=== PATIENT | female | born 1980 | race Caucasian/White ===

== ENCOUNTER 2017-04-03 22:48 | Emergency (ER) | payer MEDICAID, MEDICARE ==
[~2017-04-03] VITALS: Ht 157.5 cm; Wt 58.0 kg
[~2017-04-03 22:48] MED LIST: ASPI81TA82 PO; CARV25TA PO; CLON1TAB PO; FURO1TAB93 PO; LOSA25 PO; LYRI50CA2 PO; SPIR25 PO
[2017-04-03 22:49] VITALS: BP 144/90; PULSE 91; RESP 16; TEMP 98.6; O2SAT 98
== END 2017-04-04 00:40 | disposition left against medical advice (07) ==
LOC: NED 22:48
DX: Z53.21 Procedure and treatment not carried out due to patient leaving prior to being seen by health care provider (principal)
CPT/HCPCS: 99281

== ENCOUNTER → 2017-05-29 | Outpatient (CLI) | payer MEDICARE, OTHER | LOC: HPND 08:30 | PROVIDERS: ATTEND Family Medicine | DX: Z36.3 Encounter for antenatal screening for malformations (principal) | CPT/HCPCS: 76805 ==

== ENCOUNTER → 2017-07-05 | Outpatient (CLI) | payer MEDICARE, OTHER ==
[~2017-07-05] MED LIST changes: -ASPI81TA82 PO; -CLON1TAB PO; -FURO1TAB93 PO; -LOSA25 PO; -LYRI50CA2 PO; +PERC10TA27 PO; -SPIR25 PO; +TRAM50TA PO
== END ==
LOC: HPND 09:26
PROVIDERS: ATTEND Obstetrics & Gynecology
DX: O09.522 Supervision of elderly multigravida, second trimester (principal); O99.412 Diseases of the circulatory system complicating pregnancy, second trimester; O35.2XX0 Maternal care for (suspected) hereditary disease in fetus, not applicable or unspecified; O43.192 Other malformation of placenta, second trimester; O36.8920 Maternal care for other specified fetal problems, second trimester, not applicable or unspecified
CPT/HCPCS: 76811; 76825; 76827; 93325

== ENCOUNTER → 2017-08-09 | Outpatient (CLI) | payer MEDICARE, OTHER | LOC: HPND 10:40 | PROVIDERS: ATTEND Obstetrics & Gynecology | DX: O99.412 Diseases of the circulatory system complicating pregnancy, second trimester (principal); O43.192 Other malformation of placenta, second trimester; O09.522 Supervision of elderly multigravida, second trimester; O35.2XX0 Maternal care for (suspected) hereditary disease in fetus, not applicable or unspecified | CPT/HCPCS: 76816 ==

== ENCOUNTER → 2017-08-23 | Outpatient (CLI) | payer MEDICARE, OTHER | LOC: HPND 12:03 | PROVIDERS: ATTEND Obstetrics & Gynecology | DX: O09.523 Supervision of elderly multigravida, third trimester (principal); O35.2XX0 Maternal care for (suspected) hereditary disease in fetus, not applicable or unspecified; O43.193 Other malformation of placenta, third trimester | CPT/HCPCS: 76815 ==

== ENCOUNTER 2017-10-18 16:22 | Emergency (ER) | payer MEDICARE, OTHER ==
--- NOTE | 2017-10-18 18:03 | PD ---
HPI Chief Complaint Not feeling well, Contractions Travel History International Travel<30 Days: No Contact w/Intl Traveler<30Days: No Known Affected Area: No History of Present Illness HPI 37-year-old , IUP at 37.1 care complicated by CHF, substance abuse on Subutex, cardiomyopathy, ADHD, PTSD, anxiety The patient presents from Dr. Park's office. She reports that she was not feeling well today, and had some nausea/vomiting. She reports that this is now resolved and she feels great. She reports that she has had a few intermittent contractions, including 2 in the office. She reports that she was 2-1/2 cm dilated in the office. There are no aggravating or alleviating factors, she reports the contractions are mild and she is not bothered by them. There is no attempted treatments. She denies any leaking of fluid or vaginal bleeding. She reports good movement. She denies any headache, visual changes, right upper quadrant or epigastric pain. She reports that she had heartburn yesterday but that has resolved. She denies any other complaints at this time. Weeks Gestation: 37 Para: 1 : 3 History Past Medical History Narrative Medical CHF Substance abuse Cardiomyopathy ADHD PTSD Anxiety Obstetric History Obstetric History 1 SAB 1 Past Surgical History Narrative [facility] teeth extraction T&A Heart catheterization Family History Narrative Family History Heart murmur, MA, brain tumor, stomach versus esophageal cancer Social History Alcohol Use: No Tobacco Use: Yes Substance Abuse: Yes (h/o substance/opioid (pill) use, now on subutex and denies current usage) Allergies-Medications (Allergen,Severity, Reaction): Coded Allergies: No Known Allergies (Unverified Adverse Reaction, Unknown, 06/08/17) Home Meds Reported Medications Oxycodone-Acetaminophen (Percocet) 10-325 mg Tab, 1 TAB PO Q4H Y for PAIN, TAB 0 Refills 06/28/17 Tramadol (Tramadol) 50 Mg Tab, 50 MG PO Q4H Y for PAIN, TAB 0 Refills 06/28/17 Carvedilol (Carvedilol) 25 Mg Tab, 25 MG PO BID, #60 TAB 0 Refills 06/28/17 Review of Systems Except as stated in HPI: all other systems reviewed are Neg Physical Exam Narrative GENERAL: Well-nourished, well-developed patient. SKIN: Warm and dry. HEAD: Normocephalic and atraumatic. EYES: No scleral icterus. No injection or drainage. ENT: No nasal drainage noted. Mucous membranes pink. Airway patent. NECK: Supple, trachea midline. No JVD. CARDIOVASCULAR: Regular rate and rhythm without murmurs, gallops, or rubs. RESPIRATORY: Breath sounds equal bilaterally. No accessory muscle use. BREASTS: Deferred ABDOMEN/GI: Abdomen soft, non-tender, bowel sounds present, no rebound, no guarding Gravid GENITOURINARY: External Genitalia: intact and normal in appearance. Normal EGBUS. No cervical or vaginal masses appreciated. Grossly normal rugated. Physiologic discharge. SBE 1-2/50/-3, posterior. Uterine Contractions: Irregular FHT's: heart tones in the 130s with moderate long-term variability, good accelerations, no decelerations noted. This is a category 1 heart rate tracing and a reactive NST. EXTREMITIES: No cyanosis or edema. BACK: Nontender without obvious deformity. NEUROLOGICAL: Awake and alert. Motor and sensory grossly within normal limits. Normal speech. Musculoskeletal: Grossly normal range of motion, gait, muscle strength Psychiatric: Grossly normal memory and affect MDM Plan Assessment/plan: 1. IUP at 37.1 2. Generalized symptom of not feeling well with nausea and vomiting: Symptoms have entirely resolved and the patient now feels "great." Nausea/vomiting precautions to return if the patient 3. Normal blood pressures with no signs or symptoms of preeclampsia, preclampsia precautions. 4. wellbeing: reassuring testing with reactive NST and category 1 FHR tracking. [facility] daily. 5. H/o substance abuse: continue subutex as per Dr. Park. 6. H/o CHF and cardiomegaly: asymptomatic at this time, continue to follow up with melting supervisor as per primary OB 7. ADHD 8. PTSD 9. Anxiety 10. No evidence of labor, strict labor precautions Dr. Park called to check on patient, was given dialogue about patient, agreed with discharge home. Diagnosis Diagnosis: Primary Impression: 37 weeks gestation of Additional Impression: False labor before 37 completed weeks of gestation during in third trimester, antepartum Disposition: DISCHARGE HOME Condition: Linda Bunch MD Oct 18, 2017 18:03
--- NOTE | 2017-10-18 18:08 | PD ---
History of Present Illness History of Present Illness NST report Indications: IUP at 37w, CHF, cardiomyopathy, h/o substance abuse, abdominal pain heart tones in the 130s with moderate predatory animal exterminator variability, good accelerations, no decelerations. This is a category 1 heart rate tracing and reactive NST. F/U as clinically indicated Final diagnosis: IUP at 37w, CHF, cardiomyopathy, h/o substance abuse, abdominal pain Linda Garcia MD Oct 18, 2017 18:08
== END 2017-10-18 18:38 | disposition home or self-care (01) ==
LOC: HOBED 16:22
DX: O47.1 False labor at or after 37 completed weeks of gestation (principal); R11.2 Nausea with vomiting, unspecified; Z3A.37 37 weeks gestation of pregnancy; Z72.0 Tobacco use
CPT/HCPCS: 99284

== ENCOUNTER 2017-10-22 03:26 | Inpatient (IN) | payer MEDICARE, MEDICAID ==
[~2017-10-22] VITALS: Ht 157.5 cm; Wt 68.0 kg
[2017-10-22] VITALS (60 sets, daily range): BP systolic 96–142; BP diastolic 57–94; PULSE 69–88; RESP 16–18; TEMP 98–99.1; O2SAT 97–100
[2017-10-22] MEDS ORDERED: LACTATED RINGER'S 1000 ML INJ 1,000 ML IV SCH (04:14)
[2017-10-22] MEDS ORDERED: LACTATED RINGER'S 1000 ML INJ 1,000 ML IV PRN (04:14)
--- NOTE | 2017-10-22 04:14 | PD ---
HPI Chief Complaint Rupture membranes Date Seen: Oct 22, 2017 Time Seen: 04:08 Travel History International Travel<30 Days: No Contact w/Intl Traveler<30Days: No Known Affected Area: No History of Present Illness HPI 37-year-old who is at 37 weeks and 5 days comes in complaining of rupture membranes at approximately 2:00 this morning. Patient denies significant contractions at this time and just had her group B strep done approximately 5 days ago so she does not know the result. She has a history of congestive heart failure with cardiomyopathy that is followed by perinatology but she was cleared to deliver here. She was on tramadol at some point and was switched over to Subutex by her physician during her . Weeks Gestation: 37 Para: 1 : 3 History Past Medical History Narrative Medical Cardiomyopathy with congestive heart failure maintained on Coreg, occasional doses of furosemide Transesophageal echo was performed this Obstetric History Obstetric History Spontaneous vaginal delivery Past Surgical History Narrative [facility] [place] tooth removal and cardiac cath Family History Family History: Negative Social History Alcohol Use: No Tobacco Use: No Substance Abuse: No Allergies-Medications (Allergen,Severity, Reaction): Coded Allergies: No Known Allergies (Unverified Adverse Reaction, Unknown, 06/08/17) Home Meds Reported Medications Oxycodone-Acetaminophen (Percocet) 10-325 mg Tab, 1 TAB PO Q4H Y for PAIN, TAB 0 Refills 06/28/17 Tramadol (Tramadol) 50 Mg Tab, 50 MG PO Q4H Y for PAIN, TAB 0 Refills 18 Carvedilol (Carvedilol) 25 Mg Tab, 25 MG PO BID, #60 TAB 0 Refills 06/28/17 Review of Systems Except as stated in HPI: all other systems reviewed are Neg Physical Exam Narrative GENERAL: Well-nourished, well-developed patient. SKIN: Warm and dry. HEAD: Normocephalic and atraumatic. EYES: No scleral icterus. No injection or drainage. ENT: No nasal drainage noted. Mucous membranes pink. Airway patent. NECK: Supple, trachea midline. No JVD. CARDIOVASCULAR: Regular rate and rhythm without murmurs, gallops, or rubs. RESPIRATORY: Breath sounds equal bilaterally. No accessory muscle use. ABDOMEN/GI: Abdomen soft, non-tender, bowel sounds present, no rebound, no guarding Gravid to [-36] weeks size Fundal Height: [-] GENITOURINARY: External Genitalia: intact and normal in appearance BUS glands: [-] Normal Cervix: [-] 2-3 Dilatation: [-] 50 Effacement: [-] -3 Station: [-] Vertex Presentation: [-] Membranes: [intact or ruptured] ruptured with clear fluid Uterine Contractions: [-] Absent FHT's: Category: [-] 1 Baseline: [-] 140 Reactive: [-] Moderate Variability: [-] Moderate Decels: [-] Absent EXTREMITIES: No cyanosis or edema. BACK: Nontender without obvious deformity. No CVA tenderness. NEUROLOGICAL: Awake and alert. Motor and sensory grossly within normal limits. Five out of 5 muscle strength in all muscle groups. Normal speech. Data Data Vital Signs Reviewed: Yes [facility] Medical Record Reviewed: Yes Plan 37-year-old patient who is at 37 weeks 5 days Premature rupture membranes, not labor at this time, clear amniotic fluid Unknown group B strep CHF with cardiomyopathy, stable during this maintain on Coreg and occasional Lasix Admit to Dr. Richards Diagnosis Diagnosis: Primary Impression: 37 weeks gestation of Additional Impressions: Premature rupture of membranes Advanced maternal age in multigravida Maternal cardiomyopathy affecting in third trimester, antepartum Maxine Johnson MD Oct 22, 2017 04:14
[2017-10-22] MEDS ORDERED: SODIUM CHLORID 0.9% 500 ML INJ 500 ML IV PRN (04:15)
[2017-10-22] MEDS ORDERED: MINERAL OIL 10 ML VIAL TOPICAL PRN (04:15)
[2017-10-22] MEDS ORDERED: CITRIC ACID-SODIUM CITRATE LIQ 30 ML UDC PO SCH (04:15)
[2017-10-22] MEDS ORDERED: LIDOCAINE HCL 1% 50 ML VIAL INFIL PRN (04:15)
[2017-10-22] MEDS ORDERED: LIDOCAINE HCL 1% 50 ML VIAL I-DERMAL PRN (04:15)
[2017-10-22] MEDS ORDERED: OXYTOCIN 30 UNITS-500ML PREMIX 500 ML IV ONE (04:15)
[2017-10-22] MEDS ORDERED: SODIUM CHLOR 0.9% 1000 ML INJ 1,000 ML IV PRN (04:34)
[2017-10-22 05:04] LABS: AUTOMATED NEUTROPHIL # 6.4 TH/MM3 (1.8-7.7); BASOPHIL % 0.4 % (0.0-2.0); EOSINOPHIL # 0.2 TH/MM3 (0-0.4); EOSINOPHIL % 1.8 % (0.0-4.0); HEMATOCRIT 32.1 % (35.0-46.0); HEMOGLOBIN 11.4 GM/DL (11.6-15.3); LYMPH % 23.6 % (9.0-44.0); LYMPHOCYTE # 2.3 TH/MM3 (1.0-4.8); MEAN CORPUSCULAR HEMOGLOBIN 32.3 PG (27.0-34.0); MEAN CORPUSCULAR HGB CONC 35.5 % (32.0-36.0); MONO % 7.6 % (0.0-8.0); MONOCYTE # 0.7 TH/MM3 (0-0.9); NEUT % 66.6 % (16.0-70.0); PLATELET COUNT 158 TH/MM3 (150-450); RED BLOOD COUNT 3.53 MIL/MM3 (4.00-5.30); RED CELL DISTRIBUTION WIDTH 12.7 % (11.6-17.2); WHITE BLOOD COUNT 9.6 TH/MM3 (4.0-11.0)
[2017-10-22 05:05] LABS: BILIRUBIN, URINE NEG (NEG); BLOOD, URINE NEG (NEG); GLUCOSE,URINE NEG (NEG); KETONE, URINE NEG (NEG); NITRITE,URINE NEG (NEG); SQUAMOUS EPITHELIAL CELL URINE 1 /hpf (0-5); URINE COLOR LIGHT-YELLOW (YELLW/STRAW); URINE LEUKOCYTE ESTERASE NEG (NEG)
[2017-10-22 05:34] LABS: BICARBONATE 21.8 MEQ/L (21.0-32.0); CALCIUM 8.4 MG/DL (8.5-10.1); CREATININE 0.5 MG/DL (0.50-1.00)
[2017-10-22] MEDS ORDERED: SODIUM CHLORIDE FLUSH PRN IV FLUSH (05:45)
[2017-10-22] MEDS ORDERED: FURO1TAB60 PO (06:33)
[2017-10-22] MEDS ORDERED: BUPR8SUB SL (06:33)
[2017-10-22] MEDS ORDERED: OXYTOCIN 30 UNITS-500ML PREMIX 500 ML IV PRN (07:45)
--- NOTE | 2017-10-22 07:46 | PD.LABORPN ---
Subjective Subjective pt feeling well, mild irregular contractions, good movement, no shortness of breath or chest pain, no edema Objective Vital Signs Vital Signs Date Time Temp Pulse Resp B/P (MAP) Pulse Ox O2 Delivery O2 Flow Rate FiO2 10/22/17 05:03 18 10/22/17 05:03 74 130/72 (91) Objective Pelvic Exam: Cervix: [mid] Dilatation: [2] Effacement: [50] Station: [-3] Presentation: [vtx] Membranes: [ruptured clear] Uterine Contractions: [rare irregular] FHT's: Category: [I] Baseline: [130s] Reactive: [y] Variability: [y] Decels: [n] Weeks Gestation: 37 Pt started active labor?: No Medical induction of labor?: No Artificial rupture of membrane: No Assessment/Plan Problem List: (1) Premature rupture of membranes ICD Codes: O42.90 - Premature rupture of membranes, unspecified as to length of time between rupture and onset of labor,unspecified weeks of gestation Status: Acute (2) 37 weeks gestation of ICD Codes: Z3A.37 - 37 weeks gestation of Status: Acute (3) Advanced maternal age in multigravida ICD Codes: O09.529 - Supervision of elderly multigravida, unspecified trimester Status: Chronic (4) Maternal cardiomyopathy affecting in third trimester, antepartum ICD Codes: O99.413 - Diseases of the circulatory system complicating , third trimester; I42.9 - Cardiomyopathy, unspecified Status: Chronic (5) Chronic prescription opiate use ICD Codes: Z79.891 - jail (current) use of opiate analgesic Status: Chronic Assessment and Plan 37 yo with minaya female IUP at 37w5d admitted for leakage of fluid, confirmed rupture of membranes, not yet in labor 1) PROM - admit and augment, pitocin ordered 2) GBS neg 3) h/o cardiomyopathy outside of : per pt diagnosed in 2013, saw specialists at [facility] (Dr. Johnson, see note on chart) and now seeing local manager statistics Dr. Sanchez; will consult Dr. Sanchez & notify pt in labor, await any specific recommendations for management intra- and ; continue Coreg 25mg BID, pt not taking other meds while ; will watch IVF carefully to avoid overload; last EF reported 56% on note from Dr. Johnson dated 06/2017 4) chronic back pain: was taking tramadol, transitioned to Suboxone, Dr. Park managing, pt takes 8mg 1/2 tablet twice daily, doing well 5) status: vertex, EFW on most recent growth scan approx 20%tile, female, Cat I tracing currently; marginal cord insertion 6) dispo: not meeting criteria Juliana Richards MD Oct 22, 2017 07:46
[2017-10-22] MEDS: ACETAMINOPHEN 325 MG TAB PO PRN ×3 (08:24→20:53)
[2017-10-22] MEDS ORDERED: SODIUM CHLORIDE FLUSH BID IV FLUSH SCH (09:00)
--- NOTE | 2017-10-22 09:13 | PD.LABORPN ---
Subjective Subjective Sitting up comfortable in bed with no contractions water still coming out. does not want to take subutex at this time; feels she does not need it and worried that pain meds won't work denies SOB, chest pain, palpitations notes GFM Objective Vital Signs Vital Signs Date Time Temp Pulse Resp B/P (MAP) Pulse Ox O2 Delivery O2 Flow Rate FiO2 10/22/17 07:38 16 10/22/17 07:38 98.0 10/22/17 05:03 18 10/22/17 05:03 74 130/72 (91) Objective strip category one cervix 2/ thick per Dr. Richards pelvis proven EFW 7 pounds no edema of significance Weeks Gestation: 37 Gest Age Assessed Date: Oct 22, 2017 Gest Age Assessed Time: 09:06 Pt started active labor?: No Medical induction of labor?: No Artificial rupture of membrane: No Assessment/Plan Problem List: (1) Premature rupture of membranes ICD Codes: O42.90 - Premature rupture of membranes, unspecified as to length of time between rupture and onset of labor,unspecified weeks of gestation Status: Acute Plan: she is late with GBS- and can be augmented to deliver due to PPROM (2) 37 weeks gestation of ICD Codes: Z3A.37 - 37 weeks gestation of Status: Acute (3) Advanced maternal age in multigravida ICD Codes: O09.529 - Supervision of elderly multigravida, unspecified trimester Status: Chronic (4) 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 Sanchez. It is anticipated that delivery and post will be uneventful due to excellent ejection fraction and lack of symptoms Will limit fluid and watch post (5) Chronic prescription opiate use ICD Codes: Z79.891 - adjunct faculty for medical terminology (current) use of opiate analgesic Status: Chronic Assessment and Plan Began subutex due to opioid dependence Wants to eventually wean. Did not take gabapentin even tho it helped with arthritis and neuropathy in hands Brigitte Park MD Oct 22, 2017 09:13
[2017-10-22] MEDS: LACTATED RINGER'S 1000 ML INJ 1,000 ML IV SCH ×3 (09:26→20:47)
[2017-10-22] MEDS: NICOTINE 14 MG/24 HR PATCH T-DERMAL SCH (10:51)
[2017-10-22] MEDS: CARVEDILOL 12.5 MG TAB PO SCH (17:37)
--- NOTE | 2017-10-22 17:54 | MB ---
cc: Hardeep Concepcion DATE: 10/22/2017 PRIMARY BRAKE ENGINEER: Laron Sanchez MD IMPRESSIONS: 1. Dilated cardiomyopathy, [place] [employer] Functional Class 1, etiology unknown/idiopathic/post-viral. The patient tells me her last ejection fraction was 56%. 2. Intrauterine 37 weeks. 3. Hypertension. 4. Ongoing tobacco usage. RECOMMENDATIONS: The patient is essentially asymptomatic as regard to her cardiovascular system. She has no history of cardiac arrhythmias, dizzy spells, syncopal episodes, etc. She has not had any congestive heart failure, though she tells me at one time, her ejection fraction was in the 10-15% range. She appears to be an adequate risk for induction of labor. HISTORY OF PRESENT ILLNESS: The patient is a 37-year-old female whose water broke apparently yesterday. She has been admitted to the hospital. She is 37 weeks and delivery is being induced. She is currently on oxytocin drip. She has a history of a dilated cardiomyopathy, which developed symptomatically about 6 years after her first child was born. There apparently is no consideration of a dilated cardiomyopathy at this point in time. She has a history of hypertension. She has no history of diabetes or dyslipidemia. She has no history of cardiac arrhythmias. No history of coronary artery disease. She has had a cardiac catheterization, she tells me. She has had no history of seizures, strokes, TIAs. She does smoke 1/2-1 pack of cigarettes per day. She has been on a nicotine patch, trying to quit. She has no history of emphysema. No history of GI bleeding or acid peptic disease. No history of liver, gallbladder, kidney or thyroid disease. MEDICATIONS: At the time of admission to the hospital included carvedilol 25 b.i.d. She had previously been on spironolactone and lisinopril; however, stopped these when she realized that she was . She is on a nicotine patch. She also uses intermittent doses of furosemide. She does take oxycodone and tramadol on occasion for chronic low back pain. She tells me she has a herniated disks at 3 levels in her lumbar spine. ALLERGIES: SHE HAS NO ALLERGIES TO MEDICATIONS. PAST SURGICAL HISTORY: Includes cardiac catheterization, previous spontaneous vaginal delivery. She has also had a transesophageal echo and oral surgery. REVIEW OF SYSTEMS: She has had no recent chest pain. She has had intermittent lower extremity edema. She has had some mild exertional dyspnea. No PND or orthopnea. She has had no palpitations or dizzy spells. PHYSICAL EXAMINATION: GENERAL: At this time demonstrates an alert, oriented female, no apparent distress, breathing room air. She is not dyspneic, nor tachypneic. She is walking around the room, just returned from the water closet. VITAL SIGNS: Blood pressure 110/66, heart rate 70. HEENT: Anicteric sclerae. NECK: Jugular venous pressures are normal. LUNGS: She has clear lungs thomas. CARDIAC: Regular rate and rhythm without clicks, rubs or gallops noted. A I/ systolic ejection murmur. ABDOMEN: Deferred. EXTREMITIES: Free of cyanosis, clubbing, edema with normal pulses. LABORATORY EVALUATION: White cell count 9600, hematocrit 32, platelet count 158. Electrolytes 142, 3.6, 110, 22 with a BUN of 6, creatinine 0.5, calcium 8.4. DISCUSSION: A 37-year-old woman, full-term intrauterine with labor currently being induced. She has a history of a cardiomyopathy, most recent ejection fraction apparently normal. Recommendations are as noted above. I would recommend the patient resuming all of her medications. The patient tells me that she will breastfeed and needs to consult her direct chill casting operator/telephone advice nurse about the timing of restarting her carvedilol, lisinopril and spironolactone. DO RITESH Cardona/AMOS , 04:37 PM , 05:53 PM
[2017-10-22] MEDS ORDERED: fentaNYL 2MCG-BUPIV 0.125% INJ 100 ML ONE (19:22)
[2017-10-22] MEDS ORDERED: ePHEDrine/NS 25 MG/5 ML SYRINGE ONE (19:22)
[2017-10-22] MEDS ORDERED: NO SYSTEM NARCOTICS PRN (20:00)
[2017-10-22] MEDS ORDERED: DO NOT ADMINISTER ANTICOAGULANTS PRN (20:00)
[2017-10-22] MEDS ORDERED: ePHEDrine/NS 25 MG/5 ML SYRINGE IV PUSH PRN (20:00)
[2017-10-22] MEDS: fentaNYL 2MCG-BUPIV 0.125% 100 ML EPIDURAL PRN (20:46)
[2017-10-23] VITALS (44 sets, daily range): BP systolic 105–131; BP diastolic 64–85; PULSE 70–175; RESP 18–20; TEMP 98–98.4; O2SAT 97–100
[2017-10-23] MEDS: fentaNYL 2MCG-BUPIV 0.125% 100 ML EPIDURAL PRN (02:15)
[2017-10-23] MEDS ORDERED: DOCUSATE SODIUM 50 MG/SENNA 8.6 MG TAB PO PRN (03:15)
[2017-10-23] MEDS ORDERED: ONDANSETRON ODT 4 MG TAB PO PRN (03:15)
[2017-10-23] MEDS ORDERED: SODIUM CHLORIDE 0.9% FLUSH 10 ML FLUSH IV FLUSH PRN (03:15)
[2017-10-23] MEDS ORDERED: IBUPROFEN 800 MG TAB PO PRN (03:15)
[2017-10-23] MEDS ORDERED: ALUMINUM/MAGNESIUM/SIMETH 30 ML CUP PO PRN (03:15)
[2017-10-23] MEDS ORDERED: OXYTOCIN 30 UNITS-500ML PREMIX 500 ML IV SCH (03:15)
[2017-10-23] MEDS ORDERED: BENZOCAINE 20% TOPICAL SPRAY 60 ML CAN TOPICAL PRN (03:15)
[2017-10-23] MEDS ORDERED: ZOLPIDEM TARTRATE 5 MG TAB PO PRN (03:15)
[2017-10-23] MEDS ORDERED: WITCH HAZEL 50%/GLYCERIN 12.5% 40 PAD JAR TOPICAL PRN (03:15)
--- NOTE | 2017-10-23 03:16 | PD.OB.DELI ---
Weeks gestation: 37 Gest age assessed date: Oct 22, 2017 Gest age assessed time: 09:06 Pt started active labor?: No Medical induction of labor?: No Artificial rupture of membrane: No Anesthesia: Epidural Episiotomy: None Vaginal Delivery: Normal Presentation: Occiput anterior Nuchal Cord: x1 (clamped & cut at perineum) : Female Delivery date: Oct 23, 2017 Delivery time: 02:52 One Minute : 9 Five Minute : 9 Weight: 5#6oz Placenta: Spontaneous delivery, Intact, 3 vessel cord, Other (marginal cord insertion) Laceration: No lacerations Estimated blood loss: 200 mL Additional Information uncomplicated spontaneous vaginal delivery over intact perineum, healthy female "Ramila" Juliana Richards MD Oct 23, 2017 03:16
[2017-10-23] MEDS: CARVEDILOL 12.5 MG TAB PO SCH ×2 (06:14→19:09)
[2017-10-23] MEDS ORDERED: ACETAMINOPHEN 1000 MG/100 ML 100 ML IV ONE (07:45)
[2017-10-23] MEDS: FUROSEMIDE 20 MG TAB PO SCH (08:27)
[2017-10-23] MEDS: NICOTINE 14 MG/24 HR PATCH T-DERMAL SCH (08:28)
--- NOTE | 2017-10-23 08:49 | HHI.OB ---
Subjective Post Day: 0 Remarks distraught over visit by Dr. Umaña: Told baby could need extended stay here or at [facility] Objective Vitals/I&O Vital Signs Date Time Temp Pulse Resp B/P (MAP) Pulse Ox O2 Delivery O2 Flow Rate FiO2 10/23/17 08:00 88 20 118/76 (90) 98 10/23/17 08:00 98.0 10/23/17 06:00 98.3 74 18 10/23/17 04:31 105/80 (88) 10/23/17 04:30 18 10/23/17 04:15 79 116/67 (83) 10/23/17 04:01 72 123/76 (92) 10/23/17 04:00 18 10/23/17 03:45 18 10/23/17 03:31 74 131/75 (93) 10/23/17 03:15 93 18 124/85 (98) 10/23/17 03:00 175 122/80 (94) 10/23/17 02:47 86 115/74 (88) 10/23/17 02:30 75 111/75 (87) 99 10/23/17 02:25 73 100 10/23/17 02:15 18 10/23/17 02:15 100 10/23/17 02:15 73 118/71 (87) 10/23/17 02:10 78 100 10/23/17 02:05 75 100 10/23/17 02:00 121/66 (84) 98 10/23/17 02:00 74 10/23/17 01:55 74 98 10/23/17 01:52 18 10/23/17 01:51 98.1 10/23/17 01:50 70 98 10/23/17 01:45 73 10/23/17 01:45 114/64 (81) 99 10/23/17 01:40 77 99 10/23/17 01:35 75 97 10/23/17 01:30 74 10/23/17 01:30 108/66 (80) 97 10/23/17 01:25 76 98 10/23/17 01:20 75 98 10/23/17 01:15 77 10/23/17 01:15 78 111/65 (80) 98 10/23/17 01:12 18 10/23/17 01:10 76 99 10/23/17 01:05 77 98 10/23/17 01:00 77 10/23/17 01:00 117/69 (85) 99 10/23/17 00:55 87 98 10/23/17 00:50 83 98 10/23/17 00:45 85 10/23/17 00:45 82 127/68 (87) 98 10/23/17 00:40 74 99 10/23/17 00:35 75 99 10/23/17 00:30 111/67 (82) 99 10/23/17 00:30 75 10/23/17 00:25 71 99 10/23/17 00:20 77 99 10/23/17 00:15 70 10/23/17 00:15 112/65 (81) 99 10/23/17 00:00 75 117/71 (86) 10/22/17 23:55 69 99 10/22/17 23:50 74 97 10/22/17 23:49 98.0 18 10/22/17 23:45 79 98 10/22/17 23:40 73 98 10/22/17 23:35 73 98 10/22/17 23:30 75 10/22/17 23:30 73 113/63 (80) 97 10/22/17 23:25 98 10/22/17 23:25 72 10/22/17 23:20 98 10/22/17 23:20 71 10/22/17 23:16 72 111/65 (80) 10/22/17 23:15 99 10/22/17 23:15 71 18 10/22/17 23:10 72 10/22/17 23:10 100 10/22/17 23:05 98 10/22/17 23:05 73 10/22/17 23:00 98 10/22/17 23:00 77 10/22/17 23:00 73 133/73 (93) 10/22/17 22:55 99 10/22/17 22:55 77 10/22/17 22:50 98 10/22/17 22:50 75 10/22/17 22:45 74 18 122/77 (92) 10/22/17 22:45 77 10/22/17 22:45 98 10/22/17 22:40 72 10/22/17 22:40 99 10/22/17 22:35 70 10/22/17 22:35 99 10/22/17 22:30 70 10/22/17 22:30 99 10/22/17 22:25 77 10/22/17 22:25 99 10/22/17 22:20 98 10/22/17 22:20 70 10/22/17 22:15 18 10/22/17 22:15 98 10/22/17 22:15 70 96/61 (73) 10/22/17 21:45 18 10/22/17 21:15 70 115/61 (79) 10/22/17 21:01 75 102/60 (74) 10/22/17 21:00 75 10/22/17 20:49 98.0 18 10/22/17 20:46 18 10/22/17 20:45 78 98/57 (71) 10/22/17 20:45 74 10/22/17 20:30 75 10/22/17 20:30 78 18 103/59 (74) 10/22/17 20:25 78 10/22/17 20:20 75 10/22/17 20:15 73 116/71 (86) 10/22/17 20:10 74 10/22/17 20:05 73 10/22/17 20:00 74 106/64 (78) 10/22/17 19:55 73 110/68 (82) 10/22/17 19:50 77 10/22/17 19:50 78 106/63 (77) 10/22/17 19:45 76 10/22/17 19:45 75 118/73 (88) 10/22/17 19:40 88 10/22/17 19:35 136/80 (98) 10/22/17 19:35 73 10/22/17 19:31 80 133/76 (95) 10/22/17 19:30 79 10/22/17 19:29 78 138/87 (104) 10/22/17 17:15 98.2 16 10/22/17 16:19 76 124/70 (88) 10/22/17 15:17 74 142/87 (105) 10/22/17 14:45 98.9 16 10/22/17 13:48 73 133/76 (95) 10/22/17 12:15 78 108/62 (77) 10/22/17 12:00 99.1 16 10/22/17 12:00 74 110/66 (81) 10/22/17 11:00 126/94 (105) 10/22/17 10:30 75 103/71 (82) 10/22/17 10:19 82 116/66 (83) 10/22/17 10:15 18 10/22/17 10:00 83 112/78 (89) 10/22/17 09:30 16 10/22/17 09:30 85 112/73 (86) 10/22/17 09:23 85 111/63 (79) Objective Remarks GENERAL: Well-nourished, well-developed patient. CARDIOVASCULAR: Regular rate and rhythm without murmurs, gallops, or rubs. RESPIRATORY: Breath sounds equal bilaterally. No accessory muscle use. ABDOMEN/GI: Abdomen soft, non-tender. Fundus: Firm, non-tender at umbilicus. GENITOURINARY: Light to moderate bleeding. EXTREMITIES: No cyanosis or edema, non-tender, without signs of DVT. Medications and IVs Current Medications Medications (Trade) Dose Ordered Sig/Va Route Start Time Stop Time Status Last Admin (Coreg) 25 mg Q12H PO 10/22/17 18:00 10/23/17 06:14 (Habitrol 14 Mg Patch.24 Hr) 1 patch DAILY T-DERMAL 10/22/17 09:45 10/23/17 08:28 Miscellaneous Information 1 DAILY T-DERMAL 10/23/17 09:00 ([facility] Information) No systemic narcotics to be given except... UNSCH PRN .XX 10/22/17 20:00 10/23/17 19:59 ([facility] Information) DO NOT ADMINISTER ANY ANTICOAGUL... UNSCH PRN .XX 10/22/17 20:00 10/23/17 19:59 (NS Flush) 2 ml BID IV FLUSH 10/23/17 09:00 (NS Flush) 2 ml UNSCH PRN IV FLUSH 10/23/17 03:15 (Tylenol) 650 mg Q4H PRN PO 10/23/17 03:15 (Motrin) 800 mg Q8H PRN PO 10/23/17 03:15 (Americaine 20% Top Spr) 1 spray Q4H PRN TOPICAL 10/23/17 03:15 10/23/17 06:11 (Tucks Pads) 1 applic QID PRN TOPICAL 10/23/17 03:15 10/23/17 06:11 (Connie-Colace) 2 tab Q12H PRN PO 10/23/17 03:15 (Ambien) 5 mg HS PRN PO 10/23/17 03:15 (M-M-R Ii Inj) 0.5 ml ONCE ONCE SQ 10/23/17 16:00 10/23/17 16:01 (Boostrix Inj) 0.5 ml ONCE ONCE IM 10/23/17 16:00 10/23/17 16:01 (Mag-Al Plus Susp Liq) 15 ml Q8H PRN PO 10/23/17 03:15 (Zofran Odt) 4 mg Q6H PRN PO 10/23/17 03:15 (Lasix) 20 mg DAILY PO 10/23/17 09:00 10/23/17 08:27 (Buprenorphine) 4 mg BID SL 10/23/17 09:00 Assessment/Plan Problem List: (1) Premature rupture of membranes ICD Codes: O42.90 - Premature rupture of membranes, unspecified as to length of time between rupture and onset of labor,unspecified weeks of gestation Status: Acute Plan: she is late with GBS- and can be augmented to deliver due to PPROM (2) 37 weeks gestation of ICD Codes: Z3A.37 - 37 weeks gestation of Status: Acute (3) Advanced maternal age in multigravida ICD Codes: O09.529 - Supervision of elderly multigravida, unspecified trimester Status: Chronic (4) 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 Sanchez. It is anticipated that delivery and post will be uneventful due to excellent ejection fraction and lack of symptoms Will limit fluid and watch post (5) Chronic prescription opiate use ICD Codes: Z79.891 - senior center manager (current) use of opiate analgesic Status: Chronic Assessment and Plan reviewed MESERET in general and in her case. Low dose subutex can have no MESERET or severe. Other substances including nicotine factor in. Genetics factor in. Discussed possibility vs probability and reassured her. Baby well at this time and not scoring. Plan to keep 5 days per protocol and she can stay with Ramila in PEDS for the last three of the five days discharge on Monday Brigitte Park MD Oct 23, 2017 08:49
[2017-10-23] MEDS: BUPRENORPHINE HCL 8 MG SUBLINGUAL TAB SL SCH ×2 (08:55→21:28)
[2017-10-23] MEDS ORDERED: CARISOPRODOL 350 MG TAB PO PRN (09:00)
[2017-10-23] MEDS ORDERED: SODIUM CHLORIDE 0.9% FLUSH 10 ML FLUSH IV FLUSH SCH (09:00)
[2017-10-23] MEDS ORDERED: REMOVE OLD PATCH T-DERMAL SCH (09:00)
[2017-10-23] MEDS ORDERED: BUPRENORPHINE/NALOXONE 8 MG/2 MG SUBLINGUAL TAB SL SCH (09:00)
[2017-10-23] MEDS: ACETAMINOPHEN 325 MG TAB PO PRN ×2 (15:56→21:31)
[2017-10-23] MEDS ORDERED: MEASLES, MUMPS, RUBELLA VACCINE 0.5 ML VIAL SQ ONE (16:00)
[2017-10-23] MEDS ORDERED: DIPHTH/TETANUS/ACEL PERTUSSIS (BOOSTER) 0.5 ML VIAL/PFS IM ONE (16:00)
[2017-10-24] MEDS: CARVEDILOL 12.5 MG TAB PO SCH ×2 (07:29→17:00)
[2017-10-24] MEDS: BUPRENORPHINE HCL 8 MG SUBLINGUAL TAB SL SCH ×2 (08:03→21:30)
[2017-10-24] MEDS: ACETAMINOPHEN 325 MG TAB PO PRN ×3 (08:03→21:33)
[2017-10-24] MEDS: FUROSEMIDE 20 MG TAB PO SCH (08:03)
[2017-10-24] MEDS: NICOTINE 14 MG/24 HR PATCH T-DERMAL SCH (08:04)
[2017-10-24 08:10] VITALS: BP 127/91; PULSE 76; RESP 18; TEMP 98.6
--- NOTE | 2017-10-24 08:56 | HHI.OB ---
Subjective Post Day: 1 Remarks c/o pain w pumping. Still tearful when talking of extended stay for baby. Objective Vitals/I&O Vital Signs Date Time Temp Pulse Resp B/P (MAP) Pulse Ox O2 Delivery O2 Flow Rate FiO2 10/23/17 20:01 98.4 74 18 118/81 (93) Objective Remarks GENERAL: Well-nourished, well-developed patient. CARDIOVASCULAR: Regular rate and rhythm without murmurs, gallops, or rubs. RESPIRATORY: Breath sounds equal bilaterally.G2 systolic murmur ABDOMEN/GI: Abdomen soft, non-tender. Fundus: Firm, non-tender at umbilicus. GENITOURINARY: Light to moderate bleeding. EXTREMITIES: No cyanosis or edema, non-tender, without signs of DVT. Medications and IVs Current Medications Medications (Trade) Dose Ordered Sig/Va Route Start Time Stop Time Status Last Admin (Coreg) 25 mg Q12H PO 10/22/17 18:00 10/24/17 07:29 (Habitrol 14 Mg Patch.24 Hr) 1 patch DAILY T-DERMAL 10/22/17 09:45 10/24/17 08:04 Miscellaneous Information 1 DAILY T-DERMAL 10/23/17 09:00 (NS Flush) 2 ml BID IV FLUSH 10/23/17 09:00 10/23/17 08:27 (NS Flush) 2 ml UNSCH PRN IV FLUSH 10/23/17 03:15 (Tylenol) 650 mg Q4H PRN PO 10/23/17 03:15 10/24/17 08:03 (Americaine 20% Top Spr) 1 spray Q4H PRN TOPICAL 10/23/17 03:15 10/23/17 06:11 (Tucks Pads) 1 applic QID PRN TOPICAL 10/23/17 03:15 10/23/17 06:11 (Connie-Colace) 2 tab Q12H PRN PO 10/23/17 03:15 10/23/17 21:29 (Ambien) 5 mg HS PRN PO 10/23/17 03:15 (Mag-Al Plus Susp Liq) 15 ml Q8H PRN PO 10/23/17 03:15 (Zofran Odt) 4 mg Q6H PRN PO 10/23/17 03:15 (Lasix) 20 mg DAILY PO 10/23/17 09:00 10/24/17 08:03 (Buprenorphine) 4 mg BID SL 10/23/17 09:00 10/24/17 08:03 (Soma) 350 mg ONCE PRN PO 10/23/17 09:00 10/24/17 08:59 Assessment/Plan Problem List: (1) Premature rupture of membranes ICD Codes: O42.90 - Premature rupture of membranes, unspecified as to length of time between rupture and onset of labor,unspecified weeks of gestation Status: Acute Plan: she is late with GBS- and can be augmented to deliver due to PPROM (2) 37 weeks gestation of ICD Codes: Z3A.37 - 37 weeks gestation of Status: Acute (3) Advanced maternal age in multigravida ICD Codes: O09.529 - Supervision of elderly multigravida, unspecified trimester Status: Chronic (4) 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 Sanchez. It is anticipated that delivery and post will be uneventful due to excellent ejection fraction and lack of symptoms Will limit fluid and watch post (5) Chronic prescription opiate use ICD Codes: Z79.891 - penitentiary (current) use of opiate analgesic Status: Chronic Assessment and Plan PPD 1- doing well. Discussed c ontractions are normal with br feeding/pumping. On subutex for pain control. H/O CHF/cardiomyopathy not associated with peripartum period-continue coreg and lasix home meds Plan to keep 5 days per protocol and she can stay with Ramila in PEDS for the last three of the five days discharge on Monday Elaine Gray MD October 24, 2017 08:56
--- NOTE | 2017-10-24 12:06 | HHI.DCPOC ---
Discharge Care Plan Diagnosis: (1) Normal vaginal delivery Your Health Problems Are: Vaginal delivery Report Symptoms to Your Doctor -Temperature above 100.5 degrees -Redness, of incision or excessive or foul smelling drainage -Unusual pain or calf pain -Increased vaginal bleeding -Painful or difficulty urinating -Feelings of extreme sadness or anxiety after 2 weeks Goals to Promote Your Health * To prevent worsening of your condition and complications * To maintain your health at the optimal level Directions to Meet Your Goals Take your medications as prescribed Follow your dietary instruction Follow activity as directed Ensure plenty of rest for recovery Drink fluids for hydration Keep your appointments as scheduled Take your immunizations and boosters as scheduled If your symptoms worsen call your PCP, if no PCP go to Urgent Care Center or Emergency Room Smoking is Dangerous to Your Health. Avoid second hand smoke Call the 24-hour crisis hotline for domestic abuse at Eulogio Stock MD October 24, 2017 12:06
[2017-10-24] MEDS ORDERED: CARISOPRODOL 350 MG TAB PO ONE ×2 (18:15)
[2017-10-24 20:55] VITALS: BP 128/69; PULSE 91; RESP 19; TEMP 98.1
[2017-10-25] MEDS: ACETAMINOPHEN 325 MG TAB PO PRN ×3 (03:22→13:28)
[2017-10-25] MEDS: CARVEDILOL 12.5 MG TAB PO SCH (06:05)
--- NOTE | 2017-10-25 08:23 | HHI.OB ---
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 CARDIOVASCULAR: Regular rate and rhythm without murmurs, gallops, or rubs. RESPIRATORY: Breath sounds equal bilaterally.G2 systolic murmur ABDOMEN/GI: Abdomen soft, non-tender. Fundus: Firm, non-tender at umbilicus. GENITOURINARY: Light to moderate bleeding. EXTREMITIES: No cyanosis or edema, non-tender, without signs of DVT. Medications and IVs Current Medications Medications (Trade) Dose Ordered Sig/Av Route Start Time Stop Time Status Last Admin (Coreg) 25 mg Q12H PO 10/22/17 18:00 10/25/17 06:05 (Habitrol 14 Mg Patch.24 Hr) 1 patch DAILY T-DERMAL 10/22/17 09:45 10/24/17 08:04 Miscellaneous Information 1 DAILY T-DERMAL 10/23/17 09:00 (NS Flush) 2 ml BID IV FLUSH 10/23/17 09:00 10/23/17 08:27 (NS Flush) 2 ml UNSCH PRN IV FLUSH 10/23/17 03:15 (Tylenol) 650 mg Q4H PRN PO 10/23/17 03:15 10/25/17 03:22 (Americaine 20% Top Spr) 1 spray Q4H PRN TOPICAL 10/23/17 03:15 10/23/17 06:11 (Tucks Pads) 1 applic QID PRN TOPICAL 10/23/17 03:15 10/23/17 06:11 (Connie-Colace) 2 tab Q12H PRN PO 10/23/17 03:15 10/23/17 21:29 (Ambien) 5 mg HS PRN PO 10/23/17 03:15 (Mag-Al Plus Susp Liq) 15 ml Q8H PRN PO 10/23/17 03:15 (Zofran Odt) 4 mg Q6H PRN PO 10/23/17 03:15 (Lasix) 20 mg DAILY PO 10/23/17 09:00 10/24/17 08:03 (Buprenorphine) 4 mg BID SL 10/23/17 09:00 10/24/17 21:30 Assessment/Plan Problem List: (1) Premature rupture of membranes ICD Codes: O42.90 - Premature rupture of membranes, unspecified as to length of time between rupture and onset of labor,unspecified weeks of gestation Status: Acute Plan: she is late with GBS- and can be augmented to deliver due to PPROM (2) 37 weeks gestation of ICD Codes: Z3A.37 - 37 weeks gestation of Status: Acute (3) Advanced maternal age in multigravida ICD Codes: O09.529 - Supervision of elderly multigravida, unspecified trimester Status: Chronic (4) 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 Sanchez. It is anticipated that delivery and post will be uneventful due to excellent ejection fraction and lack of symptoms Will limit fluid and watch post (5) Chronic prescription opiate use ICD Codes: Z79.891 - assisted (current) use of opiate analgesic Status: Chronic Assessment and Plan PPD 1- doing well. Discussed c ontractions are normal with br feeding/pumping. On subutex for pain control. H/O CHF/cardiomyopathy not associated with peripartum period-continue coreg and lasix home meds Plan to keep 5 days per protocol and she can stay with Ramila in PEDS for the last three of the five days discharge on Monday PPD 2 - will increae subutex by 4 mg /24 to see if helps with afterbirth pains in next week. Soma only if needed will follow up with Dr. Sanchez locally for new cardiac baseline and with Dr. Monroy at [facility] CHF will go back down on subutex by six weeks RTO 1 week to check for PPD Brigitte Park MD October 25, 2017 08:23
[2017-10-25] MEDS: FUROSEMIDE 20 MG TAB PO SCH (08:24)
[2017-10-25] MEDS: NICOTINE 14 MG/24 HR PATCH T-DERMAL SCH (08:25)
[2017-10-25] MEDS ORDERED: NICO14DI23 T-DERMAL (08:28)
[2017-10-25] MEDS ORDERED: CARI200T PO (08:28)
[2017-10-25] MEDS ORDERED: BUPR8SUB SL (08:28)
[2017-10-25] MEDS ORDERED: CARISOPRODOL 350 MG TAB PO PRN (10:15)
[2017-10-25] MEDS ORDERED: BUPRENORPHINE HCL 8 MG SUBLINGUAL TAB SL SCH ×2 (10:15→21:00)
== END 2017-10-25 14:23 | disposition home or self-care (01) | DRG 774 ==
LOC: HOBED 03:26 → H2EA 04:12 → H1EA 10-23 05:08
PROVIDERS: ADMIT Obstetrics & Gynecology; ATTEND Obstetrics & Gynecology
PROC: 10E0XZZ Delivery of Products of Conception, External Approach (ICD-10-PCS; principal; 2017-10-23)
PROC: 3E0S3BZ Introduction of Anesthetic Agent into Epidural Space, Percutaneous Approach (ICD-10-PCS; 2017-10-23)
DX: O42.12 Full-term premature rupture of membranes, onset of labor more than 24 hours following rupture (principal); O99.42 Diseases of the circulatory system complicating childbirth; I42.0 Dilated cardiomyopathy; O99.323 Drug use complicating pregnancy, third trimester; O16.4 Unspecified maternal hypertension, complicating childbirth; Z37.0 Single live birth; F11.90 Opioid use, unspecified, uncomplicated; F17.210 Nicotine dependence, cigarettes, uncomplicated; O99.333 Smoking (tobacco) complicating pregnancy, third trimester; Z3A.37 37 weeks gestation of pregnancy; O09.523 Supervision of elderly multigravida, third trimester
CPT/HCPCS: 59025; 80048; 80307; 81001; 84112; 85025; 86900; 86901; 88307; G0481; J0131; J2590; J3010; J7120